=== PATIENT | female | born 1965 | race African-American/Black ===

== ENCOUNTER → 2018-12-06 | Outpatient (CLI) | payer BC, OTHER | LOC: HYPER 06:46 | DX: L02.412 Cutaneous abscess of left axilla (principal); L02.414 Cutaneous abscess of left upper limb; E11.9 Type 2 diabetes mellitus without complications; E66.9 Obesity, unspecified; M54.2 Cervicalgia; I10 Essential (primary) hypertension; Z68.33 Body mass index [BMI] 33.0-33.9, adult; Z90.710 Acquired absence of both cervix and uterus ==